=== PATIENT | male | born 1935 | race Two or more races ===

== ENCOUNTER 2017-01-19 10:45 | Outpatient (CLI) | payer MEDICARE, MEDICAID | END 2017-01-19 23:59 | disposition home or self-care (01) | LOC: WOU 10:45 | PROVIDERS: ATTEND Podiatrist Foot & Ankle Surgery | DX: I87.2 Venous insufficiency (chronic) (peripheral) (principal); I73.9 Peripheral vascular disease, unspecified; R60.0 Localized edema ==

== ENCOUNTER 2017-06-12 14:17 | Outpatient (CLI) | payer MEDICARE, MEDICAID | END 2017-06-12 23:59 | disposition home or self-care (01) | LOC: WOU 14:17 | PROVIDERS: ATTEND Surgery | DX: Z48.89 Encounter for other specified surgical aftercare (principal); N50.89 Other specified disorders of the male genital organs; E66.9 Obesity, unspecified; Z68.30 Body mass index [BMI] 30.0-30.9, adult; R60.0 Localized edema; E11.9 Type 2 diabetes mellitus without complications; M25.561 Pain in right knee; M23.51 Chronic instability of knee, right knee; I25.10 Atherosclerotic heart disease of native coronary artery without angina pectoris; Z79.01 Long term (current) use of anticoagulants | CPT/HCPCS: G0463 ==